=== PATIENT | female | born 2000 | race Caucasian/White ===

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

== ENCOUNTER 2024-05-03 02:35 | Inpatient (IN) ==
[2024-05-03] MEDS ORDERED: Lidocaine 1% VIAL 10 MG/ML 30 ML VIAL INJ PRN (04:26)
[2024-05-03] MEDS ORDERED: Witch Hazel PAD JAR TOPICAL PRN (04:30)
[2024-05-03] MEDS ORDERED: Dibucaine 1% OINT 28.35 GM TUBE PR PRN (04:30)
[2024-05-03] MEDS ORDERED: Glycerin ADULT 2.4 gm SUPP PR PRN (04:30)
[2024-05-03] MEDS ORDERED: Lactated Ringers 1000 ml BAG 1,000 ML IV SCH (05:00)
[2024-05-03 05:47] LABS: Urine Benzodiazepine Screen None Detected (None Detect); Urine Cannabinoids Screen None Detected (None Detect); Urine Opiates Screen None Detected (None Detect)
[2024-05-03] MEDS: Lactated Ringers 1000 ml BAG 1,000 ML IV ONE (15:47)
[2024-05-03] MEDS: Buffered Lidocaine 1% SYRIN 1 ml INTRADERM ONE (15:47)
[2024-05-03] MEDS: Lactated Ringers 1000 ml BAG 1,000 ML IV SCH (15:48)
[2024-05-04 06:13] LABS: ABS Basophils 0.1 10^3/uL (0.0-0.1); ABS Eosinophils 0.2 10^3/uL (0.0-0.5); ABS Lymphocytes 2.3 10^3/uL (1.0-4.8); ABS Monocytes 1.1 10^3/uL (0.0-0.9); ABS Neutrophils 10.6 10^3/uL (1.5-7.6); Eosinophil % 1.4 %; Hematocrit 31.3 % (35-45); Lymphocyte % 16.3 %; Mean Corpuscular Hemoglobin 32.2 pg (27-33); Mean Corpuscular Hgb Conc 35.2 g/dL (31-36); Mean Corpuscular Volume 91.6 fL (80-97); Mean Platelet Volume 7.2 fL (7.5-11.2); Platelet Count 234 10^3/uL (150-450); Red Blood Count 3.42 10^6/uL (3.63-4.92); Red Cell Distribution Width 14.3 % (12-17); White Blood Count 14.3 10^3/uL (3.8-11.8)
[2024-05-05 08:59] VITALS: BP 121/67
[2024-05-05] MEDS: Measles, Mumps,Rubella VACC 0.5 ML/VIAL SUBCUT ONE (12:11)
[2024-05-05] MEDS: Varicella Virus Vaccine Live 0.5 ML VIAL SUBCUT ONE (12:17)
== END 2024-05-05 12:30 | disposition home or self-care (01) | DRG 560 ==
LOC: MCHOBOUT 02:35 → MCHOB 03:08